=== PATIENT | female | born 1980 | race Caucasian/White ===

== ENCOUNTER 2022-03-27 10:14 | Emergency (ER) | payer SELFPAY ==
[2022-03-27] MEDS ORDERED: Morphine 4 MG/ML VIAL ONE ×2 (10:36→12:36)
[2022-03-27] MEDS ORDERED: Labetalol HCl 100 MG/20 ML VIAL ONE (10:36)
[2022-03-27] MEDS ORDERED: Ondansetron PF 4 MG/2 ML Vial ONE (10:36)
[2022-03-27 10:41] LABS: #Eosinphils 0.2 thou/uL (0.0-0.7); #Lymphocytes 2.1 thou/uL (1.20-3.40); #Monocytes 0.6 thou/uL (0.11-0.59); #Neutrophils 4.5 thou/uL (1.40-6.50); %Basophils 0.4 % (0.0-1.0); %Eosinophils 2.7 % (0.0-10.0); %Lymphocytes 28.2 % (21.0-51.0); %Monocytes 8.4 % (0.0-10.0); %Neutrophils 60.3 % (42.0-75.0); Hemoglobin 15.7 g/dL (12.0-16.0); Mean Corpuscular HGB CONC 34.9 g/dL (32.0-36.0); Mean Corpuscular Hemoglobin 31.7 pg (27.0-31.0); Mean Corpuscular Volume 90.7 fL (78.0-98.0); Mean Platelet Volume 7.1 fL (7.4-10.4); Platelet Count 186 thou/uL (130-400); RBC Distribution Width 12.1 % (11.5-14.5); Red Blood Cell (RBC) Count 4.95 mill/uL (4.20-5.40); White Blood Cell (WBC) Count 7.5 thou/uL (4.8-10.8)
[2022-03-27] MEDS ORDERED: Promethazine HCl 25 MG/ML VIAL ONE (10:50)
[2022-03-27 11:04] LABS: ALT (SGPT) 89 U/L (8-55); AST (SGOT) 86 U/L (5-34); Albumin 4.1 g/dL (3.5-5.0); Alkaline Phosphatase 71 U/L (40-110); Anion Gap 15 mmol/L (10-20); BUN (Urea Nitrogen) 20 mg/dL (7.0-18.7); Bilirubin, Total 0.5 mg/dL (0.2-1.2); Calc. Creatinine Clearance 0 mL/min (70-130); Calcium 8.9 mg/dL (7.8-10.44); Carbon Dioxide 21 mmol/L (22-29); Chloride 105 mmol/L (98-107); Globulin 4.1 g/dL (2.4-3.5); Glucose 97 mg/dL (70-105); Lipase 19 U/L (8-78); Magnesium 2.1 mg/dL (1.6-2.6); Potassium 3.5 mmol/L (3.5-5.1); Protein, Total 8.2 g/dL (6.0-8.3); Sodium 137 mmol/L (136-145)
[2022-03-27 11:34] LABS: Bacteria/HPF None Seen HPF (None Seen); Bilirubin Negative (Negative); Blood, Urine Trace (Negative); Clarity Clear (Clear); Glucose, Urine (Dipstick) Normal (Negative); Ketone, Urine Negative (Negative); Leukocyte Negative Leu/uL (Negative); Nitrite Negative (Negative); Protein, Urine (Dipstick) 100 mg/dL (Neg-Trace); RBC/HPF 0-3 HPF (0-3); Specific Gravity, Urine 1.021 (1.002-1.036); Squamous Epithelial None Seen HPF (0-3); Urobilinogen Normal mg/dL (Less than 2); WBC/HPF 0-3 HPF (0-3)
[2022-03-27] MEDS ORDERED: Ketorolac Tromethamine 30 MG/ML VIAL ONE (12:36)
== END 2022-03-27 13:40 | disposition home or self-care (01) ==
LOC: ERS 10:14
DX: I10 Essential (primary) hypertension (principal); F17.210 Nicotine dependence, cigarettes, uncomplicated
CPT/HCPCS: 70450; 71045; 80053; 81003; 81015; 83690; 83735; 83880; 85025; 93005; 96374; 96375; 96376; J1885; J2270; J2405; J2550

== ENCOUNTER 2022-04-04 06:37 | Inpatient (IN) | payer SELFPAY ==
[2022-04-04] MEDS ORDERED: diphenhydrAMINE 50 MG/ML VIAL ONE (07:31)
[2022-04-04] MEDS ORDERED: Metoclopramide HCl 10 MG/2 ML VIAL ONE (07:31)
[2022-04-04] MEDS ORDERED: Acetaminophen 500 MG TAB ONE (07:31)
[2022-04-04 07:38] LABS: #Basophils 0.1 thou/uL (0.0-0.2); #Eosinphils 0.2 thou/uL (0.0-0.7); #Lymphocytes 1.5 thou/uL (1.20-3.40); #Monocytes 0.6 thou/uL (0.11-0.59); #Neutrophils 3.7 thou/uL (1.40-6.50); %Basophils 0.9 % (0.0-1.0); %Eosinophils 3.8 % (0.0-10.0); %Lymphocytes 24.6 % (21.0-51.0); %Monocytes 9.5 % (0.0-10.0); %Neutrophils 61.2 % (42.0-75.0); Hemoglobin 15.6 g/dL (12.0-16.0); Mean Corpuscular Volume 91.3 fL (78.0-98.0); Mean Platelet Volume 7.1 fL (7.4-10.4); Platelet Count 198 thou/uL (130-400); RBC Distribution Width 12.4 % (11.5-14.5); Red Blood Cell (RBC) Count 5.02 mill/uL (4.20-5.40)
[2022-04-04 08:00] LABS: ALT (SGPT) 57 U/L (8-55); AST (SGOT) 47 U/L (5-34); Albumin 4.2 g/dL (3.5-5.0); Alkaline Phosphatase 77 U/L (40-110); Anion Gap 14 mmol/L (10-20); BUN (Urea Nitrogen) 14 mg/dL (7.0-18.7); Bilirubin, Total 0.6 mg/dL (0.2-1.2); Calc. Creatinine Clearance 0 mL/min (70-130); Calcium 8.9 mg/dL (7.8-10.44); Carbon Dioxide 23 mmol/L (22-29); Chloride 103 mmol/L (98-107); Globulin 4.1 g/dL (2.4-3.5); Glucose 103 mg/dL (70-105); Potassium 3.4 mmol/L (3.5-5.1); Protein, Total 8.3 g/dL (6.0-8.3); Sodium 137 mmol/L (136-145)
[2022-04-04 08:27] LABS: BHCG - Serum Negative (NEGATIVE); Pregs Control Background? CLEAR/WHITE (CLR/WHITE); Pregs Control Bar Appear? YES (CONTROL BAR)
[2022-04-04] MEDS ORDERED: Magnesium 2 GM/50 ML BAG (IN WATER) ONE (09:06)
[2022-04-04] MEDS ORDERED: Ketamine 50 MG/ML (10ML VIAL) ONE (10:10)
[2022-04-04] MEDS ORDERED: Senokot S 8.6-50 MG TAB PO PRN (11:17)
[2022-04-04] MEDS ORDERED: Acetaminophen 325 MG TAB PO PRN (11:17)
[2022-04-04] MEDS ORDERED: methylPREDNISolone Sod Succ/PF 125 MG/2 ML VIAL ONE (11:19)
[2022-04-04] MEDS ORDERED: Ketorolac Tromethamine 30 MG/ML VIAL ONE (11:19)
[2022-04-04] MEDS ORDERED: hydrALAZINE 20 MG/ML VIAL SLOW IVP SCH (11:30)
[2022-04-04] MEDS ORDERED: methylPREDNISolone Sod Succ/PF 125 MG/2 ML VIAL IVP SCH (11:30)
[2022-04-04] MEDS ORDERED: Potassium Chloride 20 MEQ TAB PO SCH (11:30)
[2022-04-04] MEDS ORDERED: Valproate Sodium 500 MG in Sodium Chloride 0.9% 100 ML IVPB SCH (12:00)
[2022-04-04 16:14] VITALS: BMI 32.5
[2022-04-04] MEDS: diphenhydrAMINE 50 MG/ML VIAL IVP SCH ×2 (16:35→20:05)
[2022-04-04] MEDS: Prochlorperazine Edisylate 10 MG in Sodium Chloride 0.9% 50 ML IVPB SCH ×2 (16:35→20:41)
[2022-04-04] MEDS: Famotidine 20 MG TAB PO SCH (20:05)
[2022-04-04] MEDS: Morphine 2 MG/ML VIAL SLOW IVP PRN (20:05)
[2022-04-04 22:49] LABS: SARS-CoV-2 PCR by NAA Not Detected (NotDetected)
[2022-04-05] MEDS: Morphine 2 MG/ML VIAL SLOW IVP PRN ×5 (04:31→20:19)
[2022-04-05] MEDS: diphenhydrAMINE 50 MG/ML VIAL IVP SCH ×3 (05:04→22:05)
[2022-04-05] MEDS: Prochlorperazine Edisylate 10 MG in Sodium Chloride 0.9% 50 ML IVPB SCH ×3 (05:04→22:05)
[2022-04-05 07:01] LABS: Anion Gap 11 mmol/L (10-20); BUN (Urea Nitrogen) 15 mg/dL (7.0-18.7); Calc. Creatinine Clearance 164 mL/min (70-130); Calcium 8.8 mg/dL (7.8-10.44); Carbon Dioxide 23 mmol/L (22-29); Chloride 108 mmol/L (98-107); Glucose 109 mg/dL (70-105); Potassium 3.8 mmol/L (3.5-5.1); Sodium 138 mmol/L (136-145)
[2022-04-05 07:37] LABS: #Lymphocytes 1.6 thou/uL (1.20-3.40); #Monocytes 0.9 thou/uL (0.11-0.59); #Neutrophils 11.8 thou/uL (1.40-6.50); %Eosinophils 0.2 % (0.0-10.0); %Lymphocytes 10.9 % (21.0-51.0); %Monocytes 6.2 % (0.0-10.0); %Neutrophils 82.7 % (42.0-75.0); Hemoglobin 14.2 g/dL (12.0-16.0); Mean Corpuscular HGB CONC 33.6 g/dL (32.0-36.0); Mean Corpuscular Hemoglobin 31.1 pg (27.0-31.0); Mean Corpuscular Volume 92.6 fL (78.0-98.0); Mean Platelet Volume 7.3 fL (7.4-10.4); Platelet Count 173 thou/uL (130-400); RBC Distribution Width 12.2 % (11.5-14.5); Red Blood Cell (RBC) Count 4.56 mill/uL (4.20-5.40); White Blood Cell (WBC) Count 14.2 thou/uL (4.8-10.8)
[2022-04-05] MEDS: Famotidine 20 MG TAB PO SCH ×2 (08:41→20:18)
[2022-04-05] MEDS: HYDROcodone/Acetaminophen 5/325 mg Tablet PO PRN (08:46)
[2022-04-05] MEDS: hydrALAZINE 20 MG/ML VIAL SLOW IVP PRN ×2 (08:47→17:28)
[2022-04-05] MEDS: Amlodipine 10 MG TAB PO SCH (09:15)
[2022-04-05] MEDS: cloNIDine 0.1 MG TAB PO SCH ×2 (09:16→20:18)
[2022-04-05] MEDS ORDERED: Naproxen 500 MG TAB PO PRN (13:11)
[2022-04-05] MEDS ORDERED: ALPRAZolam 0.25 MG TAB PO PRN (13:37)
[2022-04-06] MEDS: diphenhydrAMINE 50 MG/ML VIAL IVP SCH ×3 (05:19→21:05)
[2022-04-06] MEDS: Prochlorperazine Edisylate 10 MG in Sodium Chloride 0.9% 50 ML IVPB SCH ×3 (05:19→21:05)
[2022-04-06] MEDS: cloNIDine 0.1 MG TAB PO SCH ×2 (07:49→19:39)
[2022-04-06] MEDS: Amlodipine 10 MG TAB PO SCH (07:49)
[2022-04-06] MEDS: Famotidine 20 MG TAB PO SCH (07:50)
[2022-04-06] MEDS: Morphine 2 MG/ML VIAL SLOW IVP PRN (07:50)
[2022-04-06] MEDS: HYDROcodone/Acetaminophen 5/325 mg Tablet PO PRN (07:57)
[2022-04-06] MEDS ORDERED: Naproxen 500 MG TAB PO SCH (10:30)
[2022-04-06 10:48] LABS: #Basophils 0.1 thou/uL (0.0-0.2); #Eosinphils 0.1 thou/uL (0.0-0.7); #Lymphocytes 2.2 thou/uL (1.20-3.40); #Monocytes 0.7 thou/uL (0.11-0.59); #Neutrophils 6.3 thou/uL (1.40-6.50); %Basophils 0.6 % (0.0-1.0); %Eosinophils 1.4 % (0.0-10.0); %Lymphocytes 23.3 % (21.0-51.0); %Monocytes 7.3 % (0.0-10.0); %Neutrophils 67.4 % (42.0-75.0); Hemoglobin 15.7 g/dL (12.0-16.0); Mean Corpuscular Hemoglobin 31.6 pg (27.0-31.0); Mean Corpuscular Volume 92.9 fL (78.0-98.0); Mean Platelet Volume 6.9 fL (7.4-10.4); Platelet Count 192 thou/uL (130-400); RBC Distribution Width 12.6 % (11.5-14.5); Red Blood Cell (RBC) Count 4.97 mill/uL (4.20-5.40); White Blood Cell (WBC) Count 9.3 thou/uL (4.8-10.8)
[2022-04-06 11:07] LABS: Anion Gap 14 mmol/L (10-20); BUN (Urea Nitrogen) 19 mg/dL (7.0-18.7); Calc. Creatinine Clearance 162 mL/min (70-130); Calcium 8.9 mg/dL (7.8-10.44); Carbon Dioxide 25 mmol/L (22-29); Chloride 101 mmol/L (98-107); Glucose 88 mg/dL (70-105); Potassium 3.5 mmol/L (3.5-5.1); Sodium 136 mmol/L (136-145)
[2022-04-06] MEDS: hydrALAZINE 20 MG/ML VIAL SLOW IVP PRN (18:43)
[2022-04-06] MEDS: Naproxen 500 MG TAB PO PRN (19:40)
[2022-04-06] MEDS ORDERED: Melatonin 3 MG TAB PO PRN (21:15)
[2022-04-07] MEDS: Prochlorperazine Edisylate 10 MG in Sodium Chloride 0.9% 50 ML IVPB SCH (05:10)
[2022-04-07] MEDS: diphenhydrAMINE 50 MG/ML VIAL IVP SCH (05:11)
[2022-04-07] MEDS: Naproxen 500 MG TAB PO PRN (05:11)
[2022-04-07] MEDS: hydrALAZINE 20 MG/ML VIAL SLOW IVP PRN (05:15)
[2022-04-07 07:17] LABS: #Eosinphils 0.2 thou/uL (0.0-0.7); #Lymphocytes 1.8 thou/uL (1.20-3.40); #Monocytes 0.6 thou/uL (0.11-0.59); #Neutrophils 3.9 thou/uL (1.40-6.50); %Basophils 0.4 % (0.0-1.0); %Eosinophils 2.4 % (0.0-10.0); %Lymphocytes 27.4 % (21.0-51.0); %Monocytes 9.8 % (0.0-10.0); %Neutrophils 59.9 % (42.0-75.0); Hemoglobin 14.5 g/dL (12.0-16.0); Mean Corpuscular HGB CONC 34.3 g/dL (32.0-36.0); Mean Corpuscular Hemoglobin 31.9 pg (27.0-31.0); Mean Corpuscular Volume 93.1 fL (78.0-98.0); Mean Platelet Volume 7.5 fL (7.4-10.4); Platelet Count 150 thou/uL (130-400); RBC Distribution Width 12.3 % (11.5-14.5); Red Blood Cell (RBC) Count 4.53 mill/uL (4.20-5.40); White Blood Cell (WBC) Count 6.5 thou/uL (4.8-10.8)
[2022-04-07 07:58] VITALS: BP 160/106; TEMP 97.7
[2022-04-07 08:16] LABS: Anion Gap 13 mmol/L (10-20); BUN (Urea Nitrogen) 22 mg/dL (7.0-18.7); Calc. Creatinine Clearance 156 mL/min (70-130); Calcium 8.6 mg/dL (7.8-10.44); Carbon Dioxide 24 mmol/L (22-29); Chloride 103 mmol/L (98-107); Glucose 102 mg/dL (70-105); Potassium 3.2 mmol/L (3.5-5.1); Sodium 137 mmol/L (136-145)
[2022-04-07] MEDS ORDERED: Potassium Chloride 20 MEQ TAB PO SCH (09:15)
[2022-04-07] MEDS: cloNIDine 0.1 MG TAB PO SCH (09:16)
[2022-04-07] MEDS: Amlodipine 10 MG TAB PO SCH (09:16)
[2022-04-07] MEDS ORDERED: ALPRAZolam 0.25 MG TAB PO SCH (10:15)
== END 2022-04-07 11:15 | disposition home or self-care (01) | DRG 103 ==
LOC: ERS 06:37 → ERHOLD 11:17 → NEURO 15:45 → OBSVTOIN 04-06 10:24
PROVIDERS: ADMIT Family Medicine; ATTEND Internal Medicine
DX: G43.909 Migraine, unspecified, not intractable, without status migrainosus (principal); I16.1 Hypertensive emergency; I10 Essential (primary) hypertension; D72.829 Elevated white blood cell count, unspecified; F17.210 Nicotine dependence, cigarettes, uncomplicated; Z98.890 Other specified postprocedural states
CPT/HCPCS: 36415; 70496; 80048; 80053; 84484; 84703; 85025; 93005; 96365; 96367; 96375; 96376; G0378; J0360; J0780; J1200; J1885; J2270; J2765; J2930; J3475; J3490; U0003; U0005

== ENCOUNTER 2022-11-16 20:12 | Emergency (ER) | payer OTHER, SELFPAY ==
[2022-11-16] MEDS ORDERED: Ketorolac Tromethamine 30 MG/ML VIAL ONE (21:04)
[2022-11-16] MEDS ORDERED: Lidocaine 4% Cream 5 GM TUBE w/ Tegaderm ONE (21:04)
[2022-11-16] MEDS ORDERED: Lidocaine 2% PF 5 ML VIAL ONE (21:04)
[2022-11-16] MEDS ORDERED: Boostrix 0.5 ML (Tdap) VIAL (>/=7 yrs of age) ONE (21:04)
[2022-11-16] MEDS ORDERED: HYDROcodone/Acetaminophen 5/325 mg Tablet ONE (21:08)
== END 2022-11-16 22:30 ==
LOC: ERS 20:12
DX: L02.91 Cutaneous abscess, unspecified (principal); T63.301A Toxic effect of unspecified spider venom, accidental (unintentional), initial encounter; I10 Essential (primary) hypertension; F17.210 Nicotine dependence, cigarettes, uncomplicated; Z23 Encounter for immunization
CPT/HCPCS: 10060; 87070; 87077; 87186; 87205; 90471; 90715; J1885; J2001

== ENCOUNTER 2023-06-16 08:50 | Emergency (ER) | payer SELFPAY ==
[2023-06-16] MEDS ORDERED: Iopamidol-370 76% 500 ML MDV (1 ML CHARGE) ONE (09:06)
[2023-06-16] MEDS ORDERED: Cefepime 2 GM VIAL ONE (09:41)
[2023-06-16 09:47] LABS: #Basophils 0.1 thou/uL (0.0-0.2); #Eosinphils 0.2 thou/uL (0.0-0.7); #Monocytes 0.6 thou/uL (0.11-0.59); #Neutrophils 3.4 thou/uL (1.40-6.50); %Basophils 0.9 % (0.0-1.0); %Eosinophils 3.4 % (0.0-10.0); %Lymphocytes 24.1 % (21.0-51.0); %Monocytes 11.2 % (0.0-10.0); %Neutrophils 60.2 % (42.0-75.0); Hemoglobin 13.4 g/dL (12.0-16.0); Mean Corpuscular HGB CONC 34.9 g/dL (32.0-36.0); Mean Corpuscular Hemoglobin 29.8 pg (27.0-31.0); Mean Corpuscular Volume 85.3 fl (78.0-98.0); Mean Platelet Volume 9.6 fL (7.4-10.4); Platelet Count 174 10x3/uL (130-400); RBC Distribution Width 12.1 % (11.5-14.5); White Blood Cell (WBC) Count 5.6 10x3/uL (4.8-10.8)
[2023-06-16 09:59] LABS: BHCG - Serum Negative (NEGATIVE); Pregs Control Background? CLEAR/WHITE (CLR/WHITE); Pregs Control Bar Appear? YES (CONTROL BAR)
[2023-06-16 10:18] LABS: ALT (SGPT) 47 U/L (8-55); AST (SGOT) 39 U/L (5-34); Albumin 3.8 g/dL (3.5-5.0); Alkaline Phosphatase 85 U/L (40-110); Anion Gap 12 mmol/L (10-20); BUN (Urea Nitrogen) 17 mg/dL (7.0-18.7); Bilirubin, Total 0.3 mg/dL (0.2-1.2); Calc. Creatinine Clearance 0 mL/min (70-130); Calcium 8.9 mg/dL (7.8-10.44); Carbon Dioxide 23 mmol/L (22-29); Chloride 107 mmol/L (98-107); Estimated GFR 63; Globulin 3.9 g/dL (2.4-3.5); Glucose 103 mg/dL (70-105); Potassium 3.4 mmol/L (3.5-5.1); Protein, Total 7.7 g/dL (6.0-8.3); Sodium 139 mmol/L (136-145)
[2023-06-16] MEDS ORDERED: Morphine 4 MG/ML VIAL ONE (10:29)
[2023-06-16] MEDS ORDERED: Lidocaine 1% w/Epinephrine 1:100K 20 ML VIAL ONE (11:34)
[2023-06-16] MEDS ORDERED: Potassium Chloride 20 MEQ TAB ONE (11:53)
[2023-06-16] MEDS ORDERED: VANCOMYCIN 2 GRAM/500 ML BAG 2 GM in Premix Bag 1 BAG IVPB SCH (12:00)
[2023-06-16] MEDS ORDERED: predniSONE 20 MG TAB ONE (15:09)
[2023-06-16] MEDS ORDERED: Famotidine/PF 20 mg/2ml Vial ONE (15:09)
[2023-06-16] MEDS ORDERED: diphenhydrAMINE 50 MG/ML VIAL ONE (15:09)
== END 2023-06-16 16:29 ==
LOC: EEVIPCON 08:50 → ERS 08:50
DX: L03.311 Cellulitis of abdominal wall (principal); L02.211 Cutaneous abscess of abdominal wall; I10 Essential (primary) hypertension; F17.210 Nicotine dependence, cigarettes, uncomplicated; Z79.899 Other long term (current) drug therapy
CPT/HCPCS: 36415; 74177; 80053; 83605; 84703; 85025; 87040; 93005; 96365; 96366; 96367; 96372; 96375; J0692; J1200; J2270; J3370; J7512; Q9967; S0028

== ENCOUNTER 2024-11-17 11:09 | Emergency (ER) | payer OTHER, SELFPAY ==
[2024-11-17] MEDS ORDERED: Acetaminophen 500 MG TAB ONE (12:16)
[2024-11-17] MEDS ORDERED: Ibuprofen 800 MG TAB ONE (12:16)
== END 2024-11-17 12:28 ==
LOC: ERS 11:09 → EEVIPCON 11:09 → ERS 12:28
DX: S83.281A Other tear of lateral meniscus, current injury, right knee, initial encounter (principal); I10 Essential (primary) hypertension; F17.210 Nicotine dependence, cigarettes, uncomplicated; Z79.899 Other long term (current) drug therapy; X58.XXXA Exposure to other specified factors, initial encounter; Y93.G3 Activity, cooking and baking
CPT/HCPCS: 99283